=== PATIENT | female | born 1965 | race Caucasian/White ===

== ENCOUNTER 2021-11-24 15:10 | Emergency (ER) | payer MEDICARE, MEDICAID ==
[~2021-11-24] VITALS: Ht 149.9 cm; Wt 84.5 kg
[2021-11-24] MEDS ORDERED: UBRO100T (15:34)
[2021-11-24] MEDS ORDERED: OXCA300T57 PO (15:34)
[2021-11-24 16:35] LABS: HEMATOCRIT 39.1 % (36-46); HEMOGLOBIN 12.8 g/dL (12.0-16.0); MEAN CORPUSCULAR HEMOGLOBIN 27.5 pg (26.0-34.0); MEAN CORPUSCULAR HGB CONC 32.7 G/dL (31.0-37.0); MEAN CORPUSCULAR VOLUME 84 fL (80-100); PLATELET COUNT (AUTO) 243 K/uL (150-450); RED BLOOD CELL COUNT(AUTO) 4.64 MIL/uL (4.00-5.20); RED CELL DISTRIBUTION WIDTH 17.7 % (11.5-14.5)
[2021-11-24 16:49] LABS: CREATININE 1.1 mg/dL (0.60-1.30); POTASSIUM 5.1 mmol/L (3.5-5.1)
[2021-11-24 16:52] LABS: ALBUMIN 3.1 g/dL (3.4-5.0); BILIRUBIN,TOTAL 0.4 mg/dL (0.1-1.0); TOTAL PROTEIN, SERUM 6.2 g/dL (6.4-8.2)
[2021-11-24 16:56] LABS: BAND NEUTROPHILS % (MANUAL) 0 % (0-5)
[2021-11-24 16:57] LABS: LYMPHOCYTES % (MANUAL) 7 % (22-44); MONOCYTES % (MANUAL) 5 % (2-9); SEGMENTED NEUTROPHILS % 88 % (40-70)
[2021-11-24] MEDS ORDERED: FURO20 PO (18:13)
[2021-11-24 18:20] VITALS: BP 118/89
== END 2021-11-24 18:27 | disposition home or self-care (01) ==
LOC: EMS 15:10
DX: R22.43 Localized swelling, mass and lump, lower limb, bilateral (principal); G43.909 Migraine, unspecified, not intractable, without status migrainosus; Z85.72 Personal history of non-Hodgkin lymphomas
CPT/HCPCS: 71045; 80053; 85025; 99284; 36415-L1; 36415-TC

== ENCOUNTER 2022-01-18 18:15 | Inpatient (IN) | payer MEDICARE, MEDICAID ==
[~2022-01-18] VITALS: Ht 152.4 cm; Wt 74.0 kg
[~2022-01-18 18:15] MED LIST: FURO20 PO; OXCA300T57 PO; UBRO100T
[2022-01-18] MEDS ORDERED: FUROSEMIDE 40 MG/4 ML VIAL IVP ONE (19:15)
[2022-01-18 19:29] LABS: BASOPHILS % (AUTO) 0.3 % (0.0-2.0); EOSINOPHILS % (AUTO) 0 % (1.0-6.0); LYMPHOCYTES # (AUTO) 2.4 K/uL (1.0-4.8); LYMPHOCYTES % (AUTO) 21.4 % (22.0-44.0); MEAN CORPUSCULAR HEMOGLOBIN 26.6 pg (26.0-34.0); MEAN CORPUSCULAR VOLUME 86 fL (80-100); MONOCYTES # (AUTO) 0.8 K/uL (0.1-1.0); MONOCYTES % (AUTO) 7.2 % (2.0-9.0); NEUTROPHILS # (AUTO) 8.1 K/uL (1.8-7.7); NEUTROPHILS % (AUTO) 71.1 % (40.0-70.0); PLATELET COUNT (AUTO) 252 K/uL (150-450); RED CELL DISTRIBUTION WIDTH 20.4 % (11.5-14.5)
[2022-01-18 19:39] LABS: CALCIUM, TOTAL 9.3 mg/dL (8.8-10.5); CREATININE 1.89 mg/dL (0.60-1.30); POTASSIUM 5.2 mmol/L (3.5-5.1)
[2022-01-18 19:46] LABS: BILIRUBIN,TOTAL 2.4 mg/dL (0.1-1.0); TOTAL PROTEIN, SERUM 7.2 g/dL (6.4-8.2)
[2022-01-18] MEDS ORDERED: ONDANSETRON HCL 4 MG/2 ML VIAL IVP PRN ×2 (20:30→21:30)
[2022-01-18 20:48] LABS: COVID AG,FIA SOURCE NASOPHARYNGEAL
[2022-01-18] MEDS ORDERED: MAGNESIUM HYDROXIDE SUSPENSION 30 ML UDCUP PO PRN (21:30)
[2022-01-18] MEDS ORDERED: BISACODYL 10 MG RECTAL RECTAL SUPPOSITORY PR PRN (21:30)
[2022-01-18] MEDS ORDERED: MORPHINE SULFATE 2 MG/ML SYRINGE IVP PRN (21:30)
[2022-01-18] MEDS ORDERED: ACETAMINOPHEN 325 MG TABLET PO PRN (21:30)
[2022-01-18] MEDS ORDERED: SODIUM POLYSTYRENE SULFONATE 15 GM/60 ML SUSPENSION BOTTLE PO ONE (21:30)
[2022-01-18] MEDS ORDERED: HYDROCODONE/ACETAMINOPHEN 5-325 MG TABLET PO PRN (21:30)
[2022-01-18 22:53] VITALS: BP 119/80
[2022-01-18] MEDS: HEPARIN SODIUM,PORCINE 5,000 UNITS/ML VIAL SQ SCH (23:42)
[2022-01-19 00:32] VITALS: BP 122/89
[2022-01-19] MEDS ORDERED: PENTETATE DTPA TC99M/MCL ISOTOPE 1 EA INJ INJ ONE (02:45)
[2022-01-19] MEDS ORDERED: MAA ALBUMIN AGGREGATED TC99M/UD<10MCL ISOTOPE 1 EA INJ INJ ONE (03:05)
[2022-01-19 04:00] VITALS: BP 118/64
[2022-01-19 06:55] LABS: CALCIUM, TOTAL 9.5 mg/dL (8.8-10.5); CREATININE 2.53 mg/dL (0.60-1.30)
[2022-01-19] MEDS ORDERED: SODIUM POLYSTYRENE SULFONATE 15 GM/60 ML SUSPENSION BOTTLE PO ONE (08:15)
[2022-01-19 08:28] LABS: EOSINOPHILS % (AUTO) 0.1 % (1.0-6.0); HEMATOCRIT 39.4 % (36-46); HEMOGLOBIN 12.2 g/dL (12.0-16.0); LYMPHOCYTES # (AUTO) 1.6 K/uL (1.0-4.8); LYMPHOCYTES % (AUTO) 7.6 % (22.0-44.0); MEAN CORPUSCULAR HEMOGLOBIN 26.5 pg (26.0-34.0); MEAN CORPUSCULAR VOLUME 86 fL (80-100); MONOCYTES # (AUTO) 0.8 K/uL (0.1-1.0); MONOCYTES % (AUTO) 3.9 % (2.0-9.0); NEUTROPHILS # (AUTO) 18.3 K/uL (1.8-7.7)
[2022-01-19 08:31] LABS: NEUTROPHILS % (AUTO) 88.4 % (40.0-70.0); PLATELET COUNT (AUTO) 112 K/uL (150-450)
[2022-01-19] MEDS: PANTOPRAZOLE SODIUM 40 MG DR TABLET PO SCH (08:36)
[2022-01-19] MEDS: HEPARIN SODIUM,PORCINE 5,000 UNITS/ML VIAL SQ SCH ×2 (08:36→16:00)
[2022-01-19] MEDS: DOCUSATE SODIUM 100 MG CAPSULE PO SCH ×2 (08:36→21:00)
[2022-01-19] MEDS ORDERED: FUROSEMIDE 20 MG/2 ML VIAL IVP SCH (09:00)
[2022-01-19 09:18] VITALS: BP 93/63
[2022-01-19] MEDS ORDERED: SODIUM ZIRCONIUM CYCLOSILICATE 5 GM POWDER PACKET PO SCH (12:15)
[2022-01-19] MEDS ORDERED: *CLINICAL-LEVOFLOXACIN IVPB DOSING CLINICAL ONE (12:45)
[2022-01-19] MEDS ORDERED: LEVOFLOXACIN 750 MG/D5% WATER 150 ML IV SCH (13:00)
[2022-01-19] MEDS: SODIUM BICARBONATE 650 MG TABLET PO SCH ×2 (13:43→21:59)
[2022-01-19] MEDS ORDERED: SODIUM CHLORIDE 0.9% 250 ML IV ONE (13:45)
[2022-01-19 13:49] LABS: LACTIC ACID 12.4 mmol/L (0.4-2.0)
[2022-01-19] MEDS ORDERED: SODIUM CHLORIDE 0.9% 500 ML IV PRN (14:30)
[2022-01-19 14:43] VITALS: BP 117/80
[2022-01-19] MEDS ORDERED: FUROSEMIDE 20 MG/2 ML VIAL IVP ONE ×2 (15:15)
[2022-01-19 15:22] LABS: ABG BASE EXCESS -8.3 mmol/L (-2.0-3.0); ABG CARBOXYHEMOGLOBIN 0.4 % (0.0-1.5); ABG HCO3 18.7 mmol/L (22.0-26.0); ABG METHEMOGLOBIN 0.3 % (0.0-1.5); ABG OXYGEN CONTENT 16.6 mL/dL (15.0-23.0); ABG OXYHEMOGLOBIN 98.3 % (94.0-100.0); ABG PCO2 29 mmHg (35-45); ABG PH 7.384 (7.35-7.450); ABG TOTAL HEMOGLOBIN 11.8 G/dL (12.0-18.0); PO2, ARTERIAL BG 147.2 mmHg (84.0-92.0); SOURCE, BLOOD GAS ARTERIAL; TEMPERATURE, FAHRENHEIT, BG 97.8 FAHREN (96.0-98.6)
[2022-01-19 15:24] LABS: ABG A-A DIFF O2 76.4 mmHg (10-20.0); SITE, BLOOD GAS RT RADIAL
[2022-01-19 15:25] LABS: O2 DEVICE,BLOOD GAS CANNULA (ROOM AIR)
[2022-01-19 15:42] LABS: CALCIUM, TOTAL 8.3 mg/dL (8.8-10.5); CREATININE 2.38 mg/dL (0.60-1.30); POTASSIUM 3.4 mmol/L (3.5-5.1)
[2022-01-19 16:30] VITALS: BP 126/79
[2022-01-19 19:50] LABS: CREATININE,URINE RANDOM 57.6 mg/dL (30.0-125.0); POTASSIUM,URINE RANDOM 46 mmol/L (12-75); PROTEIN,URINE RANDOM 158 mg/dL (0-11.9); SODIUM,URINE RANDOM 13 mmol/l (20-110); UREA NITROGEN,URINE RANDOM 416 mg/dL (350-1000)
[2022-01-19 19:52] LABS: AMPHET/METH SCREEN,URINE NEGATIVE (NEGATIVE); APPEARANCE,URINE CLEAR (CLEAR); BARBITURATE SCREEN, URINE NEGATIVE (NEGATIVE); BENZODIAZEPINES SCREEN,URINE NEGATIVE (NEGATIVE); CANNABINOID SCREEN,URINE NEGATIVE (NEGATIVE); COCAINE SCREEN,URINE NEGATIVE (NEGATIVE); GLUCOSE, URINE (UA) NEGATIVE (NEGATIVE); METHADONE SCREEN, URINE NEGATIVE (NEGATIVE); OPIATE SCREEN,URINE NEGATIVE (NEGATIVE); PH,URINE 6.5 (5.0-8.0)
[2022-01-19 19:53] LABS: BILIRUBIN,URINE NEGATIVE (NEGATIVE); KETONES,URINE NEGATIVE (NEGATIVE); NITRATE,URINE NEGATIVE (NEGATIVE); UROBILINOGEN,URINE <=1.0 mg/dL (<=1.0)
[2022-01-19 19:54] LABS: PHENCYCLIDINE SCREEN,URINE NEGATIVE (NEGATIVE)
[2022-01-19 19:55] LABS: SPECIFIC GRAVITIY, URINE 1.013 (1.003-1.030)
[2022-01-19 19:56] LABS: LEUKOCYTE ESTERASE ,URINE SMALL (NEGATIVE); OCCULT BLOOD,URINE MODERATE (NEGATIVE); PROTEIN,URINE 100-200,SEE CONFIRM mg/dL (NEGATIVE)
[2022-01-19 20:00] VITALS: BP 99/67
[2022-01-19 20:05] LABS: BACTERIA,URINE Moderate /HPF (None Seen); SULFOSALICYLIC ACID,URINE 2+ (Negative)
[2022-01-19] MEDS ORDERED: FUROSEMIDE 40 MG/4 ML VIAL IVP SCH (21:00)
[2022-01-19 21:48] LABS: INFLUENZA TYPE A NEGATIVE FOR TYPE A (NEGATIVE); INFLUENZA TYPE B NEGATIVE FOR TYPE B (NEGATIVE)
[2022-01-20] VITALS: BP 83/61
[2022-01-20 04:00] VITALS: BP 92/54
[2022-01-20 05:55] LABS: BASOPHILS % (AUTO) 0.1 % (0.0-2.0); LYMPHOCYTES # (AUTO) 1.1 K/uL (1.0-4.8); LYMPHOCYTES % (AUTO) 8.8 % (22.0-44.0); MEAN CORPUSCULAR HEMOGLOBIN 26.3 pg (26.0-34.0); MEAN CORPUSCULAR HGB CONC 32.4 G/dL (31.0-37.0); MEAN CORPUSCULAR VOLUME 81 fL (80-100); MONOCYTES # (AUTO) 0.3 K/uL (0.1-1.0); MONOCYTES % (AUTO) 2.5 % (2.0-9.0); NEUTROPHILS # (AUTO) 10.7 K/uL (1.8-7.7); PLATELET COUNT (AUTO) 125 K/uL (150-450); RED BLOOD CELL COUNT(AUTO) 4.57 MIL/uL (4.00-5.20)
[2022-01-20 06:00] LABS: NEUTROPHILS % (AUTO) 87.6 % (40.0-70.0)
[2022-01-20 06:07] LABS: CALCIUM, TOTAL 7.8 mg/dL (8.8-10.5); CREATININE 1.64 mg/dL (0.60-1.30); MAGNESIUM 1.7 mg/dL (1.80-2.40); PHOSPHORUS 4.2 mg/dL (2.5-4.9)
[2022-01-20 06:14] LABS: POTASSIUM 2.5 mmol/L (3.5-5.1)
[2022-01-20] MEDS ORDERED: POTASSIUM CHLORIDE 20 MEQ ER TABLET PO ONE (06:30)
[2022-01-20] MEDS: POTASSIUM CHL 10 MEQ/WATER 50 ML IV SCH ×3 (06:50→10:11)
[2022-01-20 07:01] LABS: GLUCOMETER DEV NAME(LOC) 5N.1C; GLUCOSE,POINT OF CARE 52 MG/DL (70-110)
[2022-01-20 08:00] VITALS: BP 91/64
[2022-01-20 08:06] LABS: HEPATITIS C AB (EIA) <0.1 s/co ratio (0.0-0.9)
[2022-01-20] MEDS: PANTOPRAZOLE SODIUM 40 MG DR TABLET PO SCH (08:17)
[2022-01-20] MEDS: HEPARIN SODIUM,PORCINE 5,000 UNITS/ML VIAL SQ SCH ×4 (08:17→23:52)
[2022-01-20] MEDS: DOCUSATE SODIUM 100 MG CAPSULE PO SCH ×2 (08:18→20:15)
[2022-01-20] MEDS: SODIUM BICARBONATE 650 MG TABLET PO SCH (08:19)
[2022-01-20] MEDS ORDERED: MIDAZOLAM HCL 2 MG/2 ML VIAL IVP ONE (09:00)
[2022-01-20] MEDS ORDERED: KETAMINE HCL 50 MG/ML 10 ML VIAL IVP ONE (09:00)
[2022-01-20] MEDS ORDERED: FentaNYL CITRATE PF 100 MCG/2 ML VIAL IVP ONE (09:00)
[2022-01-20 12:00] VITALS: BP 87/63
[2022-01-20 14:00] LABS: CALCIUM, TOTAL 7.8 mg/dL (8.8-10.5); CREATININE 1.5 mg/dL (0.60-1.30)
[2022-01-20] MEDS: FUROSEMIDE 40 MG/4 ML VIAL IVP SCH ×2 (14:21→20:16)
[2022-01-20 16:00] VITALS: BP 101/65
[2022-01-20] MEDS ORDERED: FUROSEMIDE 40 MG/4 ML VIAL IVP SCH (16:00)
[2022-01-20 20:00] VITALS: BP 93/68
[2022-01-21] VITALS: BP 101/65
[2022-01-21 04:00] VITALS: BP 104/49
[2022-01-21 05:26] LABS: BASOPHILS % (AUTO) 0.8 % (0.0-2.0); EOSINOPHILS % (AUTO) 1.4 % (1.0-6.0); HEMATOCRIT 38.9 % (36-46); HEMOGLOBIN 12.7 g/dL (12.0-16.0); LYMPHOCYTES # (AUTO) 1.7 K/uL (1.0-4.8); LYMPHOCYTES % (AUTO) 22.8 % (22.0-44.0); MEAN CORPUSCULAR HEMOGLOBIN 26.5 pg (26.0-34.0); MEAN CORPUSCULAR HGB CONC 32.5 G/dL (31.0-37.0); MEAN CORPUSCULAR VOLUME 82 fL (80-100); MONOCYTES # (AUTO) 0.3 K/uL (0.1-1.0); MONOCYTES % (AUTO) 4.3 % (2.0-9.0); NEUTROPHILS # (AUTO) 5.2 K/uL (1.8-7.7); NEUTROPHILS % (AUTO) 70.7 % (40.0-70.0); PLATELET COUNT (AUTO) 165 K/uL (150-450); RED BLOOD CELL COUNT(AUTO) 4.78 MIL/uL (4.00-5.20); RED CELL DISTRIBUTION WIDTH 19.8 % (11.5-14.5)
[2022-01-21 05:35] LABS: CALCIUM, TOTAL 8.2 mg/dL (8.8-10.5); CREATININE 1.17 mg/dL (0.60-1.30); MAGNESIUM 1.5 mg/dL (1.80-2.40)
[2022-01-21] MEDS ORDERED: POTASSIUM CHLORIDE 20 MEQ ER TABLET PO ONE ×3 (06:30→12:30)
[2022-01-21 08:00] VITALS: BP 111/72
[2022-01-21] MEDS ORDERED: MAGNESIUM SULFATE 2 GM/WATER 50 ML IV ONE (08:00)
[2022-01-21] MEDS: PANTOPRAZOLE SODIUM 40 MG DR TABLET PO SCH (08:05)
[2022-01-21] MEDS: METOPROLOL SUCCINATE 25 MG ER TABLET PO SCH (08:05)
[2022-01-21] MEDS: DOCUSATE SODIUM 100 MG CAPSULE PO SCH ×2 (08:11→20:17)
[2022-01-21] MEDS: HEPARIN SODIUM,PORCINE 5,000 UNITS/ML VIAL SQ SCH ×2 (08:11→16:49)
[2022-01-21] MEDS: FUROSEMIDE 40 MG TABLET PO SCH ×2 (08:13→20:17)
[2022-01-21 08:38] LABS: ALBUMIN 2.7 g/dL (3.4-5.0); BILIRUBIN,DIRECT 1.7 mg/dL (0.00-0.20); BILIRUBIN,TOTAL 2.8 mg/dL (0.1-1.0); TOTAL PROTEIN, SERUM 6.4 g/dL (6.4-8.2)
[2022-01-21] MEDS ORDERED: GADOTERATE MEGLUMINE 10 MMOL/20 ML VIAL IVP ONE (10:49)
[2022-01-21 11:14] LABS: INR 1.9 (0.9-1.1); PROTHROMBIN TIME 19.3 SEC (9.4-11.6)
[2022-01-21 12:00] VITALS: BP 82/41
[2022-01-21] MEDS: LEVOFLOXACIN 750 MG/D5% WATER 150 ML IV SCH (13:33)
[2022-01-21 14:06] LABS: ALBUMIN URINE (ELP) 27.1 %
[2022-01-21] MEDS ORDERED: AcetaZOLAMIDE 250 MG TABLET PO ONE (15:00)
[2022-01-21 16:00] VITALS: BP 105/51
[2022-01-21 16:08] LABS: LACTIC ACID 3.2 mmol/L (0.4-2.0)
[2022-01-21 16:11] LABS: CALCIUM, TOTAL 8.1 mg/dL (8.8-10.5); CREATININE 1.15 mg/dL (0.60-1.30); POTASSIUM 3.8 mmol/L (3.5-5.1)
[2022-01-21 16:26] LABS: ACETAMINOPHEN < 2 mcg/mL (10-30); CREATINE KINASE, TOTAL ONLY 152 U/L (26-192); LACTATE DEHYDROGENASE 678 U/L (81-234); PHOSPHORUS 4.6 mg/dL (2.5-4.9); THYROID STIMULATING HORMONE 0.97 uIU/mL (0.36-3.74)
[2022-01-21 16:32] LABS: GAMMA GLUTAMYL TRANSFERASE 110 U/L (5-85)
[2022-01-21 19:41] LABS: ABG BASE EXCESS 5.8 mmol/L (-2.0-3.0); ABG CARBOXYHEMOGLOBIN 0.7 % (0.0-1.5); ABG HCO3 29.9 mmol/L (22.0-26.0); ABG METHEMOGLOBIN 0.3 % (0.0-1.5); ABG OXYGEN CONTENT 18.6 mL/dL (15.0-23.0); ABG OXYGEN SATURATION 98.5 % (95.0-98.0); ABG OXYHEMOGLOBIN 97.5 % (94.0-100.0); ABG PCO2 33 mmHg (35-45); ABG PH 7.548 (7.35-7.450); ABG TOTAL HEMOGLOBIN 13.5 G/dL (12.0-18.0); PO2, ARTERIAL BG 107.4 mmHg (84.0-92.0); SOURCE, BLOOD GAS ARTERIAL; TEMPERATURE, FAHRENHEIT, BG 97.5 FAHREN (96.0-98.6)
[2022-01-21 19:42] LABS: ABG A-A DIFF O2 82.5 mmHg (10-20.0); O2 DEVICE,BLOOD GAS NASAL CANNULA (ROOM AIR); SITE, BLOOD GAS LFT RADIAL
[2022-01-21 20:00] VITALS: BP 112/71
[2022-01-22] VITALS: BP 85/41
[2022-01-22] MEDS: HEPARIN SODIUM,PORCINE 5,000 UNITS/ML VIAL SQ SCH ×2 (00:22→09:14)
[2022-01-22 04:00] VITALS: BP 98/53
[2022-01-22 05:18] LABS: BASOPHILS % (AUTO) 0.9 % (0.0-2.0); HEMATOCRIT 37.9 % (36-46); HEMOGLOBIN 12.2 g/dL (12.0-16.0); LYMPHOCYTES # (AUTO) 2.2 K/uL (1.0-4.8); LYMPHOCYTES % (AUTO) 33.4 % (22.0-44.0); MEAN CORPUSCULAR HEMOGLOBIN 26.4 pg (26.0-34.0); MEAN CORPUSCULAR HGB CONC 32.3 G/dL (31.0-37.0); MEAN CORPUSCULAR VOLUME 82 fL (80-100); MONOCYTES # (AUTO) 0.4 K/uL (0.1-1.0); MONOCYTES % (AUTO) 6.5 % (2.0-9.0); NEUTROPHILS # (AUTO) 3.9 K/uL (1.8-7.7); NEUTROPHILS % (AUTO) 58.2 % (40.0-70.0); PLATELET COUNT (AUTO) 176 K/uL (150-450); RED BLOOD CELL COUNT(AUTO) 4.63 MIL/uL (4.00-5.20); RED CELL DISTRIBUTION WIDTH 20.2 % (11.5-14.5)
[2022-01-22 05:47] LABS: ALBUMIN 2.6 g/dL (3.4-5.0); BILIRUBIN,TOTAL 2.4 mg/dL (0.1-1.0); CALCIUM, TOTAL 8.4 mg/dL (8.8-10.5); CREATININE 1.1 mg/dL (0.60-1.30); POTASSIUM 3.3 mmol/L (3.5-5.1); TOTAL PROTEIN, SERUM 6.5 g/dL (6.4-8.2)
[2022-01-22] MEDS ORDERED: POTASSIUM CHL 10 MEQ/WATER 50 ML IV PRN (06:30)
[2022-01-22] MEDS: POTASSIUM CHLORIDE 20 MEQ ER TABLET PO PRN (06:41)
[2022-01-22 08:00] VITALS: BP 85/60
[2022-01-22] MEDS: DOCUSATE SODIUM 100 MG CAPSULE PO SCH ×3 (09:00→19:56)
[2022-01-22] MEDS: METOPROLOL SUCCINATE 25 MG ER TABLET PO SCH (09:00)
[2022-01-22] MEDS: LISINOPRIL 5 MG TABLET PO SCH ×2 (09:00→09:14)
[2022-01-22] MEDS: PANTOPRAZOLE SODIUM 40 MG DR TABLET PO SCH (09:14)
[2022-01-22] MEDS: FUROSEMIDE 40 MG TABLET PO SCH ×2 (09:14→20:31)
[2022-01-22 10:30] LABS: INR 1.5 (0.9-1.1); PROTHROMBIN TIME 15.6 SEC (9.4-11.6)
[2022-01-22 12:00] VITALS: BP 147/97
[2022-01-22] MEDS: LEVOFLOXACIN 750 MG/D5% WATER 150 ML IV SCH (13:47)
[2022-01-22 16:00] VITALS: BP 143/48
[2022-01-22 20:00] VITALS: BP 85/66
[2022-01-22] MEDS: ZOLPIDEM TARTRATE 5 MG TABLET PO PRN (20:30)
[2022-01-23] VITALS: BP 78/48
[2022-01-23 04:00] VITALS: BP 76/51
[2022-01-23 05:47] LABS: CALCIUM, TOTAL 8.8 mg/dL (8.8-10.5); CREATININE 1.06 mg/dL (0.60-1.30); MAGNESIUM 1.6 mg/dL (1.80-2.40); PHOSPHORUS 2.3 mg/dL (2.5-4.9); POTASSIUM 3.1 mmol/L (3.5-5.1)
[2022-01-23] MEDS: POTASSIUM CHLORIDE 20 MEQ ER TABLET PO PRN ×2 (06:08→11:08)
[2022-01-23 08:00] VITALS: BP 96/60
[2022-01-23] MEDS: PANTOPRAZOLE SODIUM 40 MG DR TABLET PO SCH (08:10)
[2022-01-23] MEDS: DOCUSATE SODIUM 100 MG CAPSULE PO SCH ×2 (08:11→20:40)
[2022-01-23] MEDS: FUROSEMIDE 40 MG TABLET PO SCH ×2 (08:11→20:40)
[2022-01-23] MEDS: METOPROLOL SUCCINATE 25 MG ER TABLET PO SCH (08:12)
[2022-01-23] MEDS: LISINOPRIL 5 MG TABLET PO SCH (08:12)
[2022-01-23] MEDS ORDERED: MAGNESIUM SULFATE 4 GM/WATER 100 ML IV PRN (09:15)
[2022-01-23] MEDS ORDERED: MAGNESIUM SULFATE 2 GM/WATER 50 ML IV PRN (09:15)
[2022-01-23] MEDS ORDERED: MAGNESIUM OXIDE 400 MG TABLET PO PRN (09:15)
[2022-01-23 11:12] LABS: ALBUMIN 2.4 g/dL (3.4-5.0); BILIRUBIN,DIRECT 1.4 mg/dL (0.00-0.20); BILIRUBIN,TOTAL 2.5 mg/dL (0.1-1.0); TOTAL PROTEIN, SERUM 6.5 g/dL (6.4-8.2)
[2022-01-23 11:13] LABS: INR 1.5 (0.9-1.1); PROTHROMBIN TIME 15.3 SEC (9.4-11.6)
[2022-01-23 12:00] VITALS: BP 88/41
[2022-01-23] MEDS: LEVOFLOXACIN 750 MG/D5% WATER 150 ML IV SCH (13:40)
[2022-01-23 16:00] VITALS: BP 81/62
[2022-01-23 20:00] VITALS: BP 85/58
[2022-01-24] VITALS (8 sets, daily range): BP systolic 82–106; BP diastolic 45–75
[2022-01-24 06:12] LABS: CALCIUM, TOTAL 8.8 mg/dL (8.8-10.5); CREATININE 1.08 mg/dL (0.60-1.30); MAGNESIUM 1.8 mg/dL (1.80-2.40); PHOSPHORUS 3.1 mg/dL (2.5-4.9); POTASSIUM 3.5 mmol/L (3.5-5.1)
[2022-01-24] MEDS ORDERED: IPRATROPIUM BROMIDE 0.5 MG/2.5 ML NEB SOLUTION NEB PRN (06:30)
[2022-01-24] MEDS ORDERED: ALBUTEROL SULFATE 2.5 MG/0.5 ML NEB SOLUTION NEB PRN (06:30)
[2022-01-24] MEDS: DOCUSATE SODIUM 100 MG CAPSULE PO SCH ×2 (08:25→20:13)
[2022-01-24] MEDS: FUROSEMIDE 40 MG TABLET PO SCH (08:25)
[2022-01-24] MEDS: PANTOPRAZOLE SODIUM 40 MG DR TABLET PO SCH (08:26)
[2022-01-24] MEDS ORDERED: SODIUM BICARBONATE 50 MEQ/50 ML VIAL ONE (10:35)
[2022-01-24] MEDS ORDERED: LIDOCAINE/PF 1% 30 ML VIAL ONE (10:35)
[2022-01-24] MEDS ORDERED: NITROGLYCERIN 50 MG/D5% WATER 250 ML ONE (10:35)
[2022-01-24] MEDS ORDERED: IOHEXOL 300 MG/ML 100 ML VIAL ONE (10:36)
[2022-01-24] MEDS ORDERED: VERAPAMIL HCL 2.5 MG/ML 2 ML VIAL ONE (10:36)
[2022-01-24] MEDS ORDERED: HEPARIN SODIUM 1000 UNITS/NS 1,000 ML ONE (10:36)
[2022-01-24 10:50] LABS: ALBUMIN 2.8 g/dL (3.4-5.0); BILIRUBIN,DIRECT 1.2 mg/dL (0.00-0.20); BILIRUBIN,TOTAL 2.1 mg/dL (0.1-1.0); INR 1.4 (0.9-1.1); PROTHROMBIN TIME 15.1 SEC (9.4-11.6); TOTAL PROTEIN, SERUM 7.2 g/dL (6.4-8.2)
[2022-01-24] MEDS ORDERED: FentaNYL CITRATE PF 100 MCG/2 ML VIAL ONE (11:13)
[2022-01-24] MEDS ORDERED: MIDAZOLAM HCL 2 MG/2 ML VIAL ONE (11:13)
[2022-01-24] MEDS ORDERED: PHENYLEPHRINE HCL IN 0.9% NACL 400 MCG/10 ML SYRINGE IVP ONE ×2 (11:28→11:45)
[2022-01-24] MEDS ORDERED: IOHEXOL 300 MG/ML 100 ML VIAL IARTER ONE (11:45)
[2022-01-24] MEDS ORDERED: HEPARIN SODIUM,PORCINE 1,000 UNITS/ML 10 ML VIAL IARTER ONE (11:45)
[2022-01-24] MEDS ORDERED: HEPARIN SODIUM 1000 UNITS/NS 1,000 ML IARTER ONE (11:45)
[2022-01-24] MEDS ORDERED: LIDOCAINE 1% 30 ML/SOD BICARB 8.4% 4 ML SQ ONE (11:45)
[2022-01-24] MEDS ORDERED: SODIUM CHLORIDE 0.9% 500 ML IV ONE (11:45)
[2022-01-24] MEDS: LEVOFLOXACIN 750 MG/D5% WATER 150 ML IV SCH ×2 (13:00→18:45)
[2022-01-24] MEDS ORDERED: SODIUM CHLORIDE 0.9% 250 ML IV ONE (14:14)
[2022-01-24] MEDS: ZOLPIDEM TARTRATE 5 MG TABLET PO PRN (20:13)
[2022-01-24] MEDS: FUROSEMIDE 20 MG TABLET PO SCH (20:19)
[2022-01-25 00:01] VITALS: BP 93/51
[2022-01-25 04:20] VITALS: BP 100/66
[2022-01-25 07:09] VITALS: BP 98/60
[2022-01-25] MEDS: FUROSEMIDE 20 MG TABLET PO SCH (07:54)
[2022-01-25] MEDS: PANTOPRAZOLE SODIUM 40 MG DR TABLET PO SCH (07:55)
[2022-01-25] MEDS: DOCUSATE SODIUM 100 MG CAPSULE PO SCH (07:55)
[2022-01-25] MEDS ORDERED: HYDR12.54 PO (08:28)
[2022-01-25] MEDS ORDERED: LEVE500T8 PO (08:28)
[2022-01-25] MEDS ORDERED: OMEP20 PO (08:28)
[2022-01-25] MEDS ORDERED: HYDROCHLOROTHIAZIDE 25 MG TABLET PO SCH (09:00)
[2022-01-25] MEDS ORDERED: OMEPRAZOLE 20 MG CAPSULE PO SCH (09:00)
[2022-01-25 09:25] LABS: HEMOGLOBIN 13.5 g/dL (12.0-16.0); LYMPHOCYTES # (AUTO) 1.8 K/uL (1.0-4.8); LYMPHOCYTES % (AUTO) 30.4 % (22.0-44.0); MEAN CORPUSCULAR HEMOGLOBIN 26.2 pg (26.0-34.0); MEAN CORPUSCULAR HGB CONC 32.1 G/dL (31.0-37.0); MEAN CORPUSCULAR VOLUME 82 fL (80-100); MONOCYTES # (AUTO) 0.5 K/uL (0.1-1.0); MONOCYTES % (AUTO) 8.5 % (2.0-9.0); NEUTROPHILS # (AUTO) 3.3 K/uL (1.8-7.7); NEUTROPHILS % (AUTO) 57.1 % (40.0-70.0); PLATELET COUNT (AUTO) 210 K/uL (150-450); RED BLOOD CELL COUNT(AUTO) 5.13 MIL/uL (4.00-5.20); RED CELL DISTRIBUTION WIDTH 20.2 % (11.5-14.5)
[2022-01-25 09:39] LABS: CALCIUM, TOTAL 8.7 mg/dL (8.8-10.5); CREATININE 1.3 mg/dL (0.60-1.30); POTASSIUM 3.5 mmol/L (3.5-5.1)
[2022-01-25 10:37] VITALS: BP 124/59
[2022-01-25 10:45] LABS: APPEARANCE,URINE CLEAR (CLEAR); BILIRUBIN,URINE NEGATIVE (NEGATIVE); GLUCOSE, URINE (UA) NEGATIVE (NEGATIVE); KETONES,URINE NEGATIVE (NEGATIVE); LEUKOCYTE ESTERASE ,URINE NEGATIVE (NEGATIVE); NITRATE,URINE NEGATIVE (NEGATIVE); OCCULT BLOOD,URINE NEGATIVE (NEGATIVE); SPECIFIC GRAVITIY, URINE 1.018 (1.003-1.030)
[2022-01-25 10:46] LABS: PROTEIN,URINE NEGATIVE (NEGATIVE)
[2022-01-25 10:48] LABS: CREATININE,URINE RANDOM 62.3 mg/dL (30.0-125.0)
[2022-01-25] MEDS ORDERED: LEVE500T99 PO (11:02)
[2022-01-25] MEDS ORDERED: METOPROLOL SUCCINATE 25 MG ER TABLET PO SCH (11:45)
[2022-01-25] MEDS: LEVOFLOXACIN 750 MG/D5% WATER 150 ML IV SCH (13:16)
[2022-01-25] MEDS ORDERED: FURO20 PO (14:01)
[2022-01-25] MEDS ORDERED: METO25XL PO (14:01)
[2022-01-25] MEDS ORDERED: POTA8CAP20 PO (14:02)
[2022-01-25 16:00] VITALS: BP 110/70
[2022-01-25] MEDS ORDERED: LevETIRAcetam 500 MG TABLET PO SCH (21:00)
== END 2022-01-25 17:20 | disposition home or self-care (01) | DRG 286 ==
LOC: EMS 18:28 → 5S 21:11 → ICU 01-19 20:30 → 5S 01-24 06:00
PROVIDERS: ADMIT Internal Medicine; ATTEND Internal Medicine
PROC: 4A023N7 Measurement of Cardiac Sampling and Pressure, Left Heart, Percutaneous Approach (ICD-10-PCS; principal; 2022-01-24)
PROC: B2111ZZ Fluoroscopy of Multiple Coronary Arteries using Low Osmolar Contrast (ICD-10-PCS; 2022-01-24)
DX: I13.0 Hypertensive heart and chronic kidney disease with heart failure and stage 1 through stage 4 chronic kidney disease, or unspecified chronic kidney disease (principal); I50.23 Acute on chronic systolic (congestive) heart failure; J96.01 Acute respiratory failure with hypoxia; N17.9 Acute kidney failure, unspecified; E87.1 Hypo-osmolality and hyponatremia; R65.10 Systemic inflammatory response syndrome (SIRS) of non-infectious origin without acute organ dysfunction; E87.4 Mixed disorder of acid-base balance; J98.11 Atelectasis; J91.8 Pleural effusion in other conditions classified elsewhere; I42.8 Other cardiomyopathies; N18.9 Chronic kidney disease, unspecified; E87.5 Hyperkalemia; E83.42 Hypomagnesemia; F14.10 Cocaine abuse, uncomplicated; G43.909 Migraine, unspecified, not intractable, without status migrainosus; E66.9 Obesity, unspecified; R74.01 Elevation of levels of liver transaminase levels; Z20.822 Contact with and (suspected) exposure to COVID-19; Z85.028 Personal history of other malignant neoplasm of stomach; Z85.72 Personal history of non-Hodgkin lymphomas; Z87.891 Personal history of nicotine dependence; Z92.21 Personal history of antineoplastic chemotherapy; Z68.31 Body mass index [BMI] 31.0-31.9, adult
CPT/HCPCS: 36600; 71045; 71250; 74176; 74183; 76705; 78582; 80048; 80053; 80074; 80076; 80307; 81001; 81002; 81003; 82085; 82105; 82140; 82378; 82390; 82550; 82570; 82805; 82962; 82977; 83605; 83615; 83690; 83735; 83880; 84100; 84132; 84133; 84145; 84156; 84166; 84300; 84443; 84484; 84540; 85025; 85379; 85610; 85651; 86038; 86140; 86301; 87040; 87081; 87086; 87186; 87804; 89050; 93306; 93970; 99291; A9539; A9540; G0378; G0481; J1644; J1940; J1956; J2250; J2405; J3010; J3475; J3490; J7040; J7050; Q9967; 36415-L1; 36415-TC; G0480; U0003; Z7610